=== PATIENT | female | born 1950 | race Caucasian/White ===

== ENCOUNTER 2016-09-02 06:41 | Outpatient (CLI) | payer MEDICARE ==
[~2016-09-02] VITALS: Ht 154.9 cm; Wt 52.2 kg
[2016-09-02] MEDS ORDERED: CYAN100088 PO (13:43)
[2016-09-02] MEDS ORDERED: MULT-1029 PO (13:43)
[2016-09-02] MEDS ORDERED: ASCO1TAB36 PO (13:43)
[2016-09-02] MEDS ORDERED: LACT1CAP74 PO (13:43)
[2016-09-02] MEDS ORDERED: PANT40TA3 PO (13:43)
[2016-09-02] MEDS ORDERED: CRAN400T3 PO (13:43)
[2016-09-02] MEDS ORDERED: ASPI-586 PO (13:43)
[2016-09-02] MEDS ORDERED: GLUC-219 PO (13:43)
[2016-09-02] MEDS ORDERED: OMG1KC PO (13:43)
== END 2016-09-02 13:43 ==
LOC: PREOP 06:41
PROVIDERS: ATTEND Surgery
DX: Z01.818 Encounter for other preprocedural examination (principal); Z12.11 Encounter for screening for malignant neoplasm of colon; K21.9 Gastro-esophageal reflux disease without esophagitis

== ENCOUNTER 2016-09-07 06:19 | Day surgery (SDC) | payer MEDICARE ==
[~2016-09-07] VITALS: Ht 154.9 cm; Wt 52.2 kg
[~2016-09-07 06:19] MED LIST: ASCO1TAB36 PO; ASPI-586 PO; CRAN400T3 PO; CYAN100088 PO; GLUC-219 PO; LACT1CAP74 PO; MULT-1029 PO; OMG1KC PO; PANT40TA3 PO
--- OUTSIDE RECORDS SUMMARY | 2016-09-07 06:23 | XMS REPORT | Continuity of Care Document ---
Author Author [facility] Organization [facility] Address Unknown Phone Unavailable Support Name Relationship Address Phone NOELLE HERNANDEZ DO Caregiver [address] [place] [address] EFFIE OZUNA Next Of Kin [address] [place] [address] Insurance Providers Payer Name Policy Number Subscriber Name Relationship s Medicare [id number] Ángela Zaragoza 18 Self / Same As Patient [facility] [id number] Epi Zaragoza 18 Self / Same As Patient Advance Directives Directive Response Recorded Date/Time Advance Directives No 09/02/16 1:32pm Resuscitation Status Full Code 09/02/16 1:32pm Problems No problem information available. Medications Current Home Medications Medication Dose Units Route Directions Days/Qty Instructions Start Date Cyanocobalamin (Vitamin B-12) 1,000 Mcg 1,000 Mcg Oral Daily Multivit-Min/Fa/Lycopene/Lut 1 Each 1 Each Oral Daily 09/02/16 Ascorbate Calcium/Bioflavonoid 1 Each 1 Each Oral Daily 09/02/16 [place] 3 Polyunsat Fatty Acids 1,000 Mg 1,000 Mg Oral Daily 09/02/16 Glucosamine/D3/Boswellia Nancy 1 Each 1 Each Oral Daily 09/02/16 Lactobacillus Combination No.4 1 Each 1 Each Oral Daily 09/02/16 Cranberry Fruit 400 Mg 400 Mg Oral Daily 09/02/16 Aspirin 81 Mg 81 Mg Oral Daily 09/02/16 Pantoprazole Sodium 40 Mg 40 Mg Oral Daily 09/02/16 Social History Social History Problem Response Recorded Date/Time Alcohol Use Rarely Uses 09/02/2016 1:32pm Recreational Drug Use No 09/02/2016 1:32pm Recent Foreign Travel No 09/02/2016 1:36pm Recent Infectious Disease Exposure No 09/02/2016 1:36pm Smoking Status Current Everyday Smoker 09/02/2016 1:32pm Type Used Cigarettes 09/02/2016 1:32pm Recent Hopitalizations No 09/02/2016 1:32pm Query Response Start Date Stop Date Smoking Status Current Everyday Smoker Hospital Discharge Instructions No hospital discharge instructions. Plan of Care Discharge Date 09/02/16 1:43pm Prescriptions See Medication Section Functional Status No functional status results. Allergies, Adverse Reactions, Alerts Allergen Type Severity Reaction Status Last Updated Penicillins ([id number]) Allergy Unknown HIVES Active 09/02/16 Sulfa (Sulfonamide Antibiotics) ([id number]) Allergy Unknown Active 01/12 Immunizations No immunization records. Vital Signs Acute Vital Signs Vital Response Date/Time Height (Feet) 5 feet 09/02/2016 1:32pm Height (Inches) 1.00 inches 09/02/2016 1:32pm Height (Calculated Centimeters) 154.873325 cm 09/02/2016 1:32pm Weight (Pounds) 115 pounds 09/02/2016 1:32pm Weight (Ounces) 0.0 oz 09/02/2016 1:32pm Weight (Calculated Grams) 03096.12 gm 09/02/2016 1:32pm Weight (Calculated Kilograms) 52.405543 kilograms 09/02/2016 1:32pm Calculated BMI 21.7 09/02/2016 1:32pm Results No known relevant diagnostic tests, laboratory data and/or discharge summary. Procedures No known history of procedures. Encounters Encounter Location Arrival/Admit Date Discharge/Depart Date Attending Provider Departed Clinic [facility] 09/02/16 6:41am 09/02/16 1: 43pm NOELLE HERNANDEZ DO
--- OUTSIDE RECORDS SUMMARY | 2016-09-07 06:23 | XMS REPORT | Continuity of Care Document ---
Author Author [facility] Organization [facility] Address Unknown Phone Unavailable Support Name Relationship Address Phone NOELLE HERNANDEZ DO Caregiver [address] [place] [address] EFFIE OZUNA Next Of Kin [address] [place] [address] Insurance Providers Payer Name Policy Number Subscriber Name Relationship s Medicare [id number] Ángela Zaragoza 16 Self / Same As Patient [facility] [id number] Epi Zaragoza 16 Self / Same As [...] 1 Each 1 Each Oral Daily 09/02/16 [place] 3 Polyunsat Fatty Acids 1,000 Mg 1,000 [...] Type Severity Reaction Status Last Updated Penicillins ([id number]) Allergy Unknown HIVES Active 09/02/16 Sulfa (Sulfonamide Antibiotics) ([id number]) Allergy Unknown Active 01/12 Immunizations No immunization records. Vital Signs Acute Vital Signs Vital Response Date/Time Height (Feet) 5 feet 09/02/2016 1:32pm Height (Inches) 1.00 inches 09/02/2016 1:32pm Height (Calculated Centimeters) 154.507423 cm 09/02/2016 1:32pm Weight (Pounds) 115 pounds 09/02/2016 1:32pm Weight (Ounces) 0.0 oz 09/02/2016 1:32pm Weight (Calculated Grams) 65050.12 gm 09/02/2016 1:32pm Weight (Calculated Kilograms) 52.377994 kilograms 09/02/2016 1:32pm Calculated BMI 21.7 09/02/2016 1:32pm Results No known relevant diagnostic tests, laboratory data and/or discharge summary. Procedures No known history of procedures. Encounters Encounter Location Arrival/Admit Date Discharge/Depart Date Attending Provider Departed Clinic [facility] 09/02/16 6:41am 09/02/16 1: 43pm NOELLE HERNANDEZ DO
[2016-09-07] MEDS ORDERED: NS IV 1000 ML 1,000 ML ONE (06:33)
[2016-09-07] MEDS ORDERED: NS IV 1000 ML 1,000 ML IV STA (06:56)
[2016-09-07] MEDS ORDERED: NALOXONE 0.4 MG/ML 1 ML (NARCAN) VIAL IVP PRN (07:00)
[2016-09-07] MEDS ORDERED: HURRICAINE EXT TUBE (BENZOCAINE) XX PRN (07:00)
[2016-09-07] MEDS ORDERED: LIDOCAINE JELLY 2% (XYLOCAINE) 5 ML TUBE MM PRN (07:00)
[2016-09-07] MEDS ORDERED: FLUMAZENIL (ROMAZICON) 0.1 MG/ML 5 ML VIAL INJ PRN (07:00)
[2016-09-07 07:12] VITALS: BP 137/95
[2016-09-07] MEDS ORDERED: PROPOFOL INJECTION 50 ML IV ONE (07:18)
[2016-09-07] MEDS ORDERED: MIDAZOLAM 2 MG/2 ML (VERSED) VIAL ONE (07:18)
--- NOTE | 2016-09-07 08:02 | Progress Note-Pre Operative ---
Pre-Operative Progress Note H&P Reviewed The H&P was reviewed, patient examined and no changes noted. Date H&P Reviewed: Sep 07, 2016 Time H&P Reviewed: 08:02 Pre-Operative Diagnosis: screening colonoscopy, gerd NOELLE HERNANDEZ DO Sep 07, 2016 08:02
[2016-09-07] MEDS ORDERED: PANT40TA3 PO (08:50)
[2016-09-07] MEDS ORDERED: SUCR1TAB36 PO (08:50)
--- NOTE | 2016-09-07 08:55 | Progress Note-Post Operative ---
Post-Operative Progess Note Pre-Operative Diagnosis screening colonoscopy, gerd Post-Operative Diagnosis hiatal hernia, antral ulcer with submucosal thickening, descending colon polyp Post-Op Procedure Note Date of Procedure: Sep 07, 2016 Name of Procedure: egd c biopsies, colonoscopy with hot bx polypectomy descending colon and cold biopsy anorectal Procedure Note/Findings see note Anesthesia Type per metal products fabricator assembler Estimated blood loss (mL): none Specimen(s) collected antrum body distal esophagus, descending colon polyp, anorectal NOELLE HERNANDEZ DO Sep 07, 2016 8:55 am
--- NOTE | 2016-09-07 08:57 | Discharge Inst-Simple/Standard ---
Discharge Inst-Standard Patient Instructions/Follow Up Plan of Care/Instructions/FU: Avoid Alcohol. Take medication as directed. hold aspirin for 2 more days and then resume Follow up with Dr. Trimble in 2-3 weeks. repeat colonoscopy in 3 years or sooner if changes in current condition. Activity as Tolerated: Yes Discharge Diet: Other Diet (avoid alcohol and spicy foods) ROBERT DUPREE APRN Sep 07, 2016 08:57
[2016-09-07 09:15] VITALS: BP 131/80
[2016-09-07 09:45] VITALS: BP 149/89
[2016-09-07 09:56] VITALS: BP 149/89
--- NOTE | 2016-09-07 13:13 | OPERATIVE REPORT ---
PROCEDURE PHYSICIAN: NOELLE HERNANDEZ DATE OF PROCEDURE: 09/07/2016 PREOPERATIVE DIAGNOSIS: Screening colonoscopy and GERD. POSTOPERATIVE DIAGNOSES: 1. Hiatal hernia. 2. Antral ulcer with submucosal thickening. 3. Descending colon polyp. PROCEDURES: 1. EGD with biopsies. 2. Colonoscopy with hot biopsy polypectomy descending colon and cold biopsy of the anal rectal area. SURGEON: Nai. ANESTHESIA: Per TUBE BUILDING MACHINE OPERATOR. ESTIMATED BLOOD LOSS: None. COMPLICATIONS: None. SPECIMENS: Antrum body, distal esophagus, descending colon polyp and anal rectal junction, INDICATIONS: The patient is a 66-year-old female who has been having reflux symptoms. She understands the risk and benefits of the procedure, along with colonoscopy. She has never had a colonoscopy. She understands the risks and benefits and wished to proceed with procedure. Consent was signed on the chart. PROCEDURE: The patient was taken to the endoscopy suite, placed in left lateral recumbent position. Timeout was performed. The scope was inserted in the mouth down the esophagus, stomach which was further insufflated noting an antral ulcer. There was some mucosal thickening down around the pylorus which the scope was able to be inserted into the pylorus and into the duodenum without difficulty. There were no polyps, masses or ulcerations within the duodenum. The scope was slowly retracted back to the stomach noting approximately 3 to 5 mm ulcer that was fairly deep with surrounding mucosal changes. It also has the appearance of a submucosal thickening questionable mass appearing but this appears to be submucosal. Biopsy of the antrum in this area was obtained. The scope was also retroflexed noting a lot of inflammation consistent with gastritis of the body and also noting a hiatal hernia. Biopsy of the inflamed areas was obtained. The scope was returned to its normal position and slowly withdrawn back into the distal esophagus with some slight erythema. Biopsy was obtained. The scope was then slowly retracted until completely removed noting no further pathology. COLONOSCOPY: Digital rectal exam was performed noting both internal and external hemorrhoidal disease. No palpable polyps, masses, ulcerations. The scope was inserted in the rectum and advanced all of the way to the cecum with minimal difficulty. There were no polyps, masses ulceration of the cecum, ascending colon, transverse colon. Within the descending colon there is a flat polyp, which hot biopsy polypectomy was performed. The scope was then continued be slowly retracted back noting no other polyps, masses or ulcerations. In the rectum, the scope was also retroflexed noting some hemorrhoidal disease but also some hypervascularity and some erythematous changes. Biopsy of this area at the anal rectal region was obtained. The scope was returned to its normal position and slowly withdrawn until completely removed noting no other pathologic. The patient tolerated the procedure well without any complications and taken to the recovery room in stable condition. RECOMMENDATIONS: The patient will be placed on Protonix 40 mg twice a day for approximately 2 weeks and then convert to one per day. The patient also be placed on Carafate 1 tablet with meals and at bedtime. I will also discuss endoscopic ultrasound to further evaluate this submucosal-appearing mass or submucosal thickening and this will also allow reevaluation of the ulcer. This probably will be done in approximately 4 to 6 weeks. If she has any problems prior to that, she should be reevaluated at that time. The patient should abstain from alcohol use. The patient will also need repeat colonoscopy in 3 years unless she has any problems prior to that, she should be reevaluated at that time. Job ID: [id number] Dictated Date: 09/07/2016 08:59:49 Cashier Ticket Selling Date: 09/07/2016 13:02:55 / vi
== END 2016-09-07 10:00 | disposition home or self-care (01) ==
LOC: SDC 06:19
PROVIDERS: ATTEND Surgery
DX: Z12.11 Encounter for screening for malignant neoplasm of colon (principal); D12.4 Benign neoplasm of descending colon; K64.9 Unspecified hemorrhoids; K21.9 Gastro-esophageal reflux disease without esophagitis; K44.9 Diaphragmatic hernia without obstruction or gangrene; K25.9 Gastric ulcer, unspecified as acute or chronic, without hemorrhage or perforation

== ENCOUNTER → 2021-08-07 | Outpatient (CLI) | payer MEDICARE, OTHER ==
[~2021-08-07] MED LIST changes: -PANT40TA3 PO; +PANT40TA52 PO; +SUCR1TAB36 PO
--- NOTE | 2021-08-07 15:53 | Diagnostic Imaging Report ---
INDICATION: Lower back pain. COMPARISON: None FINDINGS: None FINDINGS: Frontal, oblique, and lateral radiographic views of the lumbar spine were obtained. Static alignment is maintained. There is no significant anteroretrolisthesis. There is no evidence of jumped facets. Evaluation of vertebral body heights demonstrates mild compressive-type deformity involving the superior endplate of L1 and L2. There is also wedge-shaped compression of T11. These are age-indeterminate. There is no prior available for comparison. Note is also made of mild multilevel degenerative changes. Included small bowel loops are nondistended. IMPRESSION: 1. Deformities of T11, L1, and L2 as described above. These are age-indeterminate. Correlation with MRI is recommended to determine acuity. Dictated by: Dictated on workstation # [id number]
== END ==
LOC: MERGE 14:38 → RAD 14:38
PROVIDERS: ATTEND Family Medicine
DX: M43.8X5 Other specified deforming dorsopathies, thoracolumbar region (principal)
CPT/HCPCS: 72110

== ENCOUNTER → 2021-08-25 | Outpatient (CLI) | payer MEDICARE, OTHER ==
--- NOTE | 2021-08-25 15:06 | Diagnostic Imaging Report ---
INDICATION: Postmenopausal. COMPARISON: None. FINDINGS: The bone mineral density of the spine, hips, and femoral necks was measured. The total T score for the spine is -1.1. This value indicates mild osteopenia. The total T score for the left hip is -2.3 and for the right hip -2.4. These values suggest severe osteopenia. The T score for the left femoral neck is -2.7 and for the right femoral neck -2.9. These values fall within the range of osteoporosis. AP Spine L1-L4: [BMD (g/cm2): 1.066] [T-Score: -1.1] [Z-Score: 0.9] [BMD Previous: na] [BMD % Change: na] LT Hip Neck: [BMD (g/cm2): 0.660] [T-Score: -2.7] [Z-Score: -0.7] LT Hip Total: [BMD (g/cm2):0.720] [T-Score:-2.3] [Z-Score: -0.4] [BMD Previous: na] [BMD % Change: na] RT Hip Neck: [BMD (g/cm2):0.641] [T-Score:-2.9] [Z-Score:-0.8] RT Hip Total: [BMD (g/cm2):0.702] [T-score:-2.4] [Z-Score:-0.6] [BMD Previous:na] [BMD % Change:na] *Indicates significant change from prior examination based on 95% confidence level. World Health Organization criteria for BMD interpretation classify patients as Normal (T-score at or above -1.0), Osteopenic (T-score between -1.0 and -2.5) or Osteoporotic (T-score at or below -2.5). LIMITATIONS AND MODIFICATION: None. FRACTURE RISK (FRAX SCORE): The ten year probability of (%): Major Osteoporotic Fracture: [27.8] Hip Fracture: [9.6] IMPRESSION: 1. There is mild osteopenia of the spine, severe osteopenia of the hips, and osteoporosis of the femoral necks. 2. See below National Osteoporosis Foundation guidelines on when to potentially initiate pharmacologic therapy. Based on the National Osteoporosis Foundation Guidelines, pharmacologic treatment should be initiated in any of the following, unless clinical conditions suggest otherwise: * Any patient with prior fragility fracture of the hip or vertebrae. A spine fracture indicates 5X risk for subsequent spine fracture and 2X risk for subsequent hip fracture. * Osteoporosis (T-score <-2.5). * Postmenopausal women and men age 50 and older with low bone mass/osteopenia (T-score between -1.0 and -2.5) by DXA and 10-year major osteoporotic fracture greater than 20% or a 10-year probability of hip fracture greater than 3%. These fracture risks are supplied above in the FRAX score, if applicable. * Clinician judgement and/or patient preferences may indicate treatment for people with 10-year fracture probabilities above or below these levels. Dictated by: Dictated on workstation # [id number]
== END ==
LOC: RAD 11:00 → MERGE 09-08 08:30
PROVIDERS: ATTEND Family Medicine
DX: M85.89 Other specified disorders of bone density and structure, multiple sites (principal); Z78.0 Asymptomatic menopausal state
CPT/HCPCS: 77080